=== PATIENT | male | born 1965 | race Caucasian/White ===

== ENCOUNTER 2016-11-23 10:08 | Emergency (ER) | payer OTHER ==
[~2016-11-23 10:08] MED LIST: FLEXERIL 10MG PO; NORCO 5/3251 TAB PO; OXYCODONE/APAP PO; SENOKOT-S TABLE1 TAB PO; ULTRAM50 MG PO
[2016-11-23] MEDS ORDERED: NO HOME MEDICATION XX (10:25)
[2016-11-23 11:10] LABS: URINE BILIRUBIN NEGATIVE (NEG); URINE BLOOD LARGE (NEG); URINE GLUCOSE (UA) NEGATIVE (NEG); URINE KETONE SMALL (NEG); URINE LEUKOCYTE ESTERASE NEGATIVE (NEG); URINE NITRITE NEGATIVE (NEG); URINE PROTEIN NEGATIVE (NEG)
[2016-11-23 11:30] LABS: URINE APPEARANCE CLEAR; URINE COLOR YELLOW
[2016-11-23 11:31] LABS: URINE EPITHELIAL CELLS 0-1 /[HPF] (0-10); URINE WBC 0-2 /[HPF] (0-5)
[2016-11-23] MEDS ORDERED: FLOMAX0.4 M1 PO (11:50)
== END 2016-11-23 12:15 ==
LOC: EDMED 10:08
PROVIDERS: Emergency Medicine
DX: R10.9 Unspecified abdominal pain (principal); R31.9 Hematuria, unspecified